=== PATIENT | female | born 1985 | race Caucasian/White ===

== ENCOUNTER 2020-03-24 19:00 | Emergency (ER) | payer BC, SELFPAY ==
[2020-03-24 19:01] VITALS: BP 104/49; PULSE 60; RESP 16; TEMP 36.6; O2SAT 100; BMI 25.0
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
[2020-03-24] MEDS: Ibuprofen 400 MG Tablet PO (19:50)
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
[2020-03-24 21:02] VITALS: BP 110/60; PULSE 70; RESP 18; O2SAT 100
== END 2020-03-24 21:02 | disposition home or self-care (01) ==
PROVIDERS: Emergency Provider Emergency Medicine
DX: S16.1XXA Strain of muscle, fascia and tendon at neck level, initial encounter (principal); S39.012A Strain of muscle, fascia and tendon of lower back, initial encounter; V49.50XA Passenger injured in collision with unspecified motor vehicles in traffic accident, initial encounter; Y93.9 Activity, unspecified; Y92.411 Interstate highway as the place of occurrence of the external cause; Y99.9 Unspecified external cause status
CPT/HCPCS: 72040; 72100; 99283